=== PATIENT | male | born 2000 | race Caucasian/White ===

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

== ENCOUNTER 2021-12-23 13:03 | Emergency (ER) | payer MEDICAID, SELFPAY ==
[~2021-12-23] VITALS: Ht 175.3 cm; Wt 83.9 kg
[~2021-12-23 13:03] MED LIST: AMOX-426 PO
[2021-12-23 13:05] VITALS: BP_SYST 118
--- NOTE | 2021-12-23 13:05 | NUR ---
BROUGHT BACK TO BED #1 AND TRIAGED. REPORT GIVEN TO TESFAYE
--- NOTE | 2021-12-23 13:12 | NUR ---
DR SULLIVAN AT BEDSIDE FOR EVALUATION
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
[2021-12-23] MEDS ORDERED: IBUP-1971 PO (13:24)
[2021-12-23] MEDS ORDERED: HYDR-3917 PO (13:24)
[2021-12-23 13:51] VITALS: BP_SYST 118
--- NOTE | 2021-12-23 13:51 | NUR ---
Patient given written and verbal discharge instructions and verbalizes understanding. ER Dr. Meza discussed with patient the results and treatment provided. Patient in stable condition. ID arm band removed. Rx of [place] and Motrin given. Patient educated on pain management and to follow up with PMD. Pain Scale 3. Opportunity for questions provided and answered. Medication side effect fact sheet provided.
== END 2021-12-23 13:51 | disposition home or self-care (01) ==
LOC: SED 13:03
DX: S33.5XXA Sprain of ligaments of lumbar spine, initial encounter (principal); Z79.899 Other long term (current) drug therapy; V49.49XA Driver injured in collision with other motor vehicles in traffic accident, initial encounter; Y93.89 Activity, other specified; Y92.89 Other specified places as the place of occurrence of the external cause; Y99.8 Other external cause status
CPT/HCPCS: 99283

== ENCOUNTER 2022-03-26 11:48 | Emergency (ER) | payer MEDICAID ==
[~2022-03-26] VITALS: Ht 175.3 cm; Wt 83.9 kg
[~2022-03-26 11:48] MED LIST changes: +HYDR-3917 PO; +IBUP-1971 PO
[2022-03-26 11:52] VITALS: BP_SYST 134
[2022-03-26] MEDS ORDERED: GUAI100S14 PO (13:31)
[2022-03-26 14:24] VITALS: BP_SYST 134
== END 2022-03-26 14:24 | disposition home or self-care (01) ==
LOC: SED 11:48
DX: J06.9 Acute upper respiratory infection, unspecified (principal); Z20.822 Contact with and (suspected) exposure to COVID-19
CPT/HCPCS: 36415; 71045; 99284

== ENCOUNTER 2022-04-09 14:49 | Emergency (ER) | payer MEDICAID ==
[~2022-04-09] VITALS: Ht 175.3 cm; Wt 83.9 kg
[~2022-04-09 14:49] MED LIST changes: +GUAI100S14 PO
[2022-04-09 15:38] VITALS: BP_SYST 109
[2022-04-09 16:56] VITALS: BP_SYST 109
[2022-04-09] MEDS ORDERED: DIPH-TET-PERTUS Vaccine 0.5 ML VIAL (ADACEL) I.M. ONE (17:30)
[2022-04-09] MEDS ORDERED: LIDOCAINE 1% 10 MG/ML, 20 ML MDV INJ ONE (17:30)
[2022-04-09] MEDS ORDERED: BACITRACIN 1 GM OINT TP ONE (17:30)
== END 2022-04-09 18:56 | disposition left against medical advice (07) ==
LOC: SED 14:49
DX: S61.411A Laceration without foreign body of right hand, initial encounter (principal); Z79.899 Other long term (current) drug therapy; W45.8XXA Other foreign body or object entering through skin, initial encounter; Y93.89 Activity, other specified; Y92.89 Other specified places as the place of occurrence of the external cause; Y99.8 Other external cause status
CPT/HCPCS: 90715; 99282; 99283

== ENCOUNTER 2023-09-06 22:00 | Emergency (ER) | payer MEDICAID ==
[~2023-09-06] VITALS: Ht 177.8 cm; Wt 81.6 kg
[2023-09-06 22:45] VITALS: BP_SYST 113; PULSE 72; RESP 18; TEMP 98.3; O2SAT 100
[2023-09-07 09:11] VITALS: BP_SYST 106; PULSE 71; RESP 14; TEMP 98.3; O2SAT 100
== END 2023-09-07 09:11 | disposition home or self-care (01) ==
LOC: SED 22:00
DX: R42 Dizziness and giddiness (principal); F45.9 Somatoform disorder, unspecified; F32.9 Major depressive disorder, single episode, unspecified; R55 Syncope and collapse; Z79.899 Other long term (current) drug therapy
CPT/HCPCS: 93005; 99285

== ENCOUNTER 2023-09-14 22:23 | Emergency (ER) | payer MEDICAID ==
[~2023-09-14] VITALS: Ht 177.8 cm; Wt 83.9 kg
[2023-09-14 22:36] VITALS: BP_SYST 121; PULSE 82; RESP 20; TEMP 97.4; O2SAT 99
[2023-09-14] MEDS ORDERED: DIPHTH,PERTUSS(ACELL),TET VAC 0.5 ML VIAL (Tdap) I.M. ONE (23:00)
[2023-09-14] MEDS ORDERED: SILVER SULFADIAZINE 1%, 25 GM TOPICAL CREAM (SSD) TP ONE (23:00)
[2023-09-14 23:20] VITALS: BP_SYST 121; PULSE 82; RESP 20; TEMP 97.4; O2SAT 99
[2023-09-14] MEDS ORDERED: NAPR-690 PO (23:20)
[2023-09-14] MEDS ORDERED: NEOM28.37 TP (23:26)
== END 2023-09-14 23:45 | disposition home or self-care (01) ==
LOC: SED 22:23
DX: T25.231A Burn of second degree of right toe(s) (nail), initial encounter (principal); Z79.899 Other long term (current) drug therapy; X10.2XXA Contact with fats and cooking oils, initial encounter; Y93.89 Activity, other specified; Y92.89 Other specified places as the place of occurrence of the external cause; Y99.8 Other external cause status
CPT/HCPCS: 90715; 99283